=== PATIENT | male | born 1970 ===

== ENCOUNTER 2020-12-08 01:30 | Emergency (ER) | payer SELFPAY ==
[~2020-12-08] VITALS: Ht 177.8 cm; Wt 89.0 kg
--- NOTE | 2020-12-08 02:17 | NUR ---
PT RESTING IN BED, PT BREATHING EQUAL AND UNLABORED. PT ON MONITOR WITH PT VSS. PT HS NO CURRENT WANTS OR NEED AT THIS TIME.
--- NOTE | 2020-12-08 03:10 | NUR ---
PT. MOVED TO T1 AT THIS TIME. ASSUMING CARE OF PT. FROM ANGELO ABRAHAM. SPO2 AND B/P MONITORS IN PLACE. ALL SAFETY MEASURES MAINTAINED.
--- NOTE | 2020-12-08 03:53 | NUR ---
PT. RESTING ON GURNEY WITH EYES CLOSED. NO DISTRESS NOTED. RESPIRATIONS VISIBLE AND NON-LABORED. SPO2 AND B/P MONITORS REMAIN IN PLACE.
--- NOTE | 2020-12-08 05:42 | NUR ---
PT. NOW ABLE TO WAKE TO VERBAL STIMULI. PT. STATES HIS NAME IS SUZAN TAYLOR AND HIS BIRTHDAY IS 1970; UPDATED REGISTRATION ON THIS. PT. NOW REFUSING TO SIT UP/SPEAK TO STAFF. PT. TO BE D/C WITH SECURITY.
--- NOTE | 2020-12-08 05:45 | NUR ---
PT. ABLE TO FULLY DRESS SELF AND AMBULATE OUT OF ED WITH STEADY GAIT.
[2020-12-08 05:49] VITALS: BP 146/96
== END 2020-12-08 05:50 | disposition home or self-care (01) ==
LOC: EDBD 05:39 → ED 05:39
DX: F10.120 Alcohol abuse with intoxication, uncomplicated (principal); Z72.9 Problem related to lifestyle, unspecified; Y90.0 Blood alcohol level of less than 20 mg/100 ml
CPT/HCPCS: 99285